=== PATIENT | female | born 1990 | race African-American/Black ===

== ENCOUNTER 2017-01-06 18:27 | Inpatient (IN) | payer OTHER, MEDICAID ==
[~2017-01-06] VITALS: Ht 152.4 cm; Wt 122.4 kg
[~2017-01-06 18:27] MED LIST: ACULAR0.5 % OP; AMOXICILLIN500 MG PO; CEPHALEXIN500 MG OR; FLEXERIL OR; LORTAB5 PO; METFORMIN1000 MG PO; NAPROSYN500 MG PO; NO HOME MEDS; NOVOLIN 70/30 SC; PRENATA8 PO; ROBITUSSIN200 MG/10 PO; TAM75CAP PO; UNKNOWN BP MED; ZITHROMAX250 MG OR; ZOFRAN ODT4 MG OR
[2017-01-06 19:21] VITALS: BP 151/82
[2017-01-06] MEDS ORDERED: PNV PO (19:36)
[2017-01-06] MEDS ORDERED: NOVOLIN 70/30 SC ×2 (19:41→19:42)
[2017-01-06 19:54] LABS: HEMATOCRIT 33.7 % (37.0-47.0); HEMOGLOBIN 11.5 g/dl (12.0-16.0); IMMATURE GRANULOCYTES 0.4 % (0.0-1.0); MEAN CORPUSCULAR HGB 29.3 pG CALC (26.0-32.0); MEAN CORPUSCULAR HGB CONC 34.1 g/L CALC (32.0-36.0); NEUT# 7.76 thou/uL (2.00-7.15); RED BLOOD COUNT 3.92 mill/uL (4.20-5.60); RED CELL DISTRI WIDTH 13.5 % (11.5-15.5)
[2017-01-06 19:57] LABS: URINE BLOOD DIPSTICK NEGATIVE (NEGATIVE); URINE CLARITY CLEAR; URINE COLOR YELLOW; URINE GLUCOSE - DIPSTICK NEGATIVE (NEGATIVE); URINE KETONE TRACE mg/dL (NEGATIVE); URINE LEUK ESTERASE NEGATIVE (Negative); URINE NITRITE - DIPSTICK NEGATIVE (Negative); URINE PROTEIN - DIPSTICK 100 mg/dL (NEG-TRACE); URINE SPECIFIC GRAVITY >=1.030
[2017-01-06 19:58] LABS: URINE BILIRUBIN - DIPSTICK NEGATIVE (NEGATIVE)
[2017-01-06 19:59] LABS: BARBITURATES NEGATIVE (NEGATIVE); COCAINE NEGATIVE (NEGATIVE); METHADONE NEGATIVE (NEGATIVE); OXCYCODONE NEGATIVE (NEGATIVE); TETRAHYDROCANNABIONOL NEGATIVE (NEGATIVE); TRICYLIC ANTIDEPRESSANTS NEGATIVE (NEGATIVE); URINE RBC 0-2 RBC/hpf (0-5); URINE SQUAMOUS EPITHELIAL CELL FEW EPI/hpf (0-FEW); URINE WBC 0-2 WBC/hpf (0-5)
[2017-01-06 20:04] LABS: ALBUMIN 3.3 g/dL (3.2-5.0); ALKALINE PHOSPHATASE 92 u/l (38-126); ANION GAP 15 (6-22 (CALC)); BILIRUBIN, TOTAL 0.4 mg/dL (0.0-1.4); BUN 10 mg/dL (7-17); BUN/CREATININE RATIO 23 (12-20 (CALC)); CALCIUM 9.6 mg/dL (8.4-10.2); CARBON DIOXIDE 19 mmol/l (22-30); CHLORIDE 106 mmol/l (95-108); CREATININE 0.4 mg/dL (0.5-1.0); GFR > 60 ML/MIN (>=60 (CALC)); GFR FOR AFR.AMER. > 60 ML/MIN (>=60 (CALC)); GLUCOSE 140 mg/dL (65-105); POTASSIUM 3.8 mmol/l (3.5-5.1); SGOT/AST 13 u/l (14-36); SGPT/ALT 23 u/l (9-52); SODIUM 137 mmol/l (137-146); TOTAL PROTEIN 6.5 g/dL (6.3-8.2)
[2017-01-06 20:30] VITALS: BP 145/86
[2017-01-07] VITALS (8 sets, daily range): BP systolic 113–155; BP diastolic 60–94
[2017-01-07] MEDS ORDERED: NOVOLIN 70/30 SC (17:53)
== END 2017-01-07 19:44 | disposition home or self-care (01) | DRG 781 ==
LOC: OB 18:27
PROVIDERS: ADMIT Obstetrics & Gynecology; ATTEND Obstetrics & Gynecology
DX: O14.03 Mild to moderate pre-eclampsia, third trimester (principal); O24.113 Pre-existing type 2 diabetes mellitus, in pregnancy, third trimester; Z68.43 Body mass index [BMI] 50.0-59.9, adult; E11.9 Type 2 diabetes mellitus without complications; O99.213 Obesity complicating pregnancy, third trimester; E66.01 Morbid (severe) obesity due to excess calories; Z79.4 Long term (current) use of insulin; Z3A.30 30 weeks gestation of pregnancy

== ENCOUNTER 2017-01-21 09:14 | Observation (INO) | payer OTHER, MEDICAID ==
[~2017-01-21] VITALS: Ht 152.4 cm; Wt 127.5 kg
[~2017-01-21 09:14] MED LIST changes: +ASPIRIN81 MG PO; +PNV PO
[2017-01-21 09:20] VITALS: BP 155/105
--- NOTE | 2017-01-21 09:20 | NUR ---
Patient on unit here for NST. Patient weighed and height obtained. BP of 155/105, Accucheck of 146mg/dl noted also. Patient placed on external monitor. heart rate baseline of 145 noted. Will continue to monitor.
--- NOTE | 2017-01-21 09:42 | NUR ---
Dr. Garnica notified of patient's presence on unit and notified of BP of 155/105 and Accucheck of post prandial of 146 mg/dl.
--- NOTE | 2017-01-21 09:55 | NUR ---
BP of 164/104 noted at present time. Will recheck at present time.
--- NOTE | 2017-01-21 10:02 | NUR ---
BP of 169/109
[2017-01-21 10:08] LABS: URINE BILIRUBIN - DIPSTICK NEGATIVE (NEGATIVE); URINE BLOOD DIPSTICK TRACE-INTACT (NEGATIVE); URINE COLOR YELLOW; URINE GLUCOSE - DIPSTICK NEGATIVE (NEGATIVE); URINE KETONE NEGATIVE (NEGATIVE); URINE LEUK ESTERASE NEGATIVE (NEGATIVE); URINE NITRITE - DIPSTICK NEGATIVE (Negative); URINE SPECIFIC GRAVITY >=1.030; URINE UROBILINOGEN - DIPSTICK 0.2 E.U./dL (0.2)
[2017-01-21 10:09] LABS: COCAINE NEGATIVE (NEGATIVE); URINE CLARITY SLIGHT CLOUDY; URINE PROTEIN - DIPSTICK Trace mg/dL (NEG-TRACE)
[2017-01-21 10:10] LABS: BARBITURATES NEGATIVE (NEGATIVE); METHADONE NEGATIVE (NEGATIVE); OXCYCODONE NEGATIVE (NEGATIVE); TETRAHYDROCANNABIONOL NEGATIVE (NEGATIVE); TRICYLIC ANTIDEPRESSANTS NEGATIVE (NEGATIVE)
--- NOTE | 2017-01-21 10:10 | NUR ---
NST check done and verified with Raquel MARTINEZ. strip nonreactive at this point. Patient still on external monitor, heart rate of 145, minimal variability at present time. Awaiting results of urinalysis.
--- NOTE | 2017-01-21 10:20 | NUR ---
Dr. Garnica called and notified unable to leave message as voicemail full.
--- NOTE | 2017-01-21 10:34 | NUR ---
Patient placed on left side. BP of 156/94.
--- NOTE | 2017-01-21 10:40 | NUR ---
Call to Dr. Garnica at office but office staff states that he is in OR.
--- NOTE | 2017-01-21 10:44 | NUR ---
BP of 178/99.
--- NOTE | 2017-01-21 11:03 | NUR ---
Dr. Garnica called and notified of patient's blood pressures. Order for cmp,cbc and 24 hour urine for total protein and creatinane kinase.
--- NOTE | 2017-01-21 11:57 | NUR ---
BP of 140/93. Patient sitting semifowlers.
[2017-01-21 12:14] LABS: HEMATOCRIT 33.9 % (37.0-47.0); HEMOGLOBIN 11.4 g/dl (12.0-16.0); IMMATURE GRANULOCYTES 0.6 % (0.0-1.0); MEAN CELL VOLUME 86.5 fL CALC (80.0-100.0); MEAN CORPUSCULAR HGB 29.1 pG CALC (26.0-32.0); MEAN CORPUSCULAR HGB CONC 33.6 g/L CALC (32.0-36.0); NEUT# 7.1 thou/uL (2.00-7.15); RED BLOOD COUNT 3.92 mill/uL (4.20-5.60); RED CELL DISTRI WIDTH 13.5 % (11.5-15.5)
[2017-01-21 12:26] LABS: ALKALINE PHOSPHATASE 98 u/l (38-126); ANION GAP 13 (6-22 (CALC)); BILIRUBIN, TOTAL 0.5 mg/dL (0.0-1.4); BUN 6 mg/dL (7-17); BUN/CREATININE RATIO 14 (12-20 (CALC)); CALCIUM 9.3 mg/dL (8.4-10.2); CARBON DIOXIDE 21 mmol/l (22-30); CHLORIDE 106 mmol/l (95-108); CREATININE 0.4 mg/dL (0.5-1.0); GFR > 60 ML/MIN (>=60 (CALC)); GFR FOR AFR.AMER. > 60 ML/MIN (>=60 (CALC)); GLUCOSE 106 mg/dL (65-105); POTASSIUM 4.1 mmol/l (3.5-5.1); SGOT/AST 17 u/l (14-36); SGPT/ALT 22 u/l (9-52); SODIUM 137 mmol/l (137-146); TOTAL PROTEIN 6.1 g/dL (6.3-8.2)
--- NOTE | 2017-01-21 12:59 | NUR ---
Patient eating lunch at present time.
--- NOTE | 2017-01-21 13:15 | NUR ---
Dr. Garnica notified of patient's presence on unit and stated that patient's blood pressure is lower order for patient to be seen in office in morning.
--- NOTE | 2017-01-21 13:15 | NUR ---
strip reactive now.
--- NOTE | 2017-01-21 13:32 | NUR ---
Patient leaves unit in good condition with all belongings. Patient informed to return next week on jan 28, 2017 at 1000 for weekly NST.
== END 2017-01-21 13:32 | disposition home or self-care (01) | DRG 781 ==
LOC: OBOP 09:14 → OB 09:40
PROVIDERS: ADMIT Obstetrics & Gynecology; ATTEND Obstetrics & Gynecology
DX: O13.3 Gestational [pregnancy-induced] hypertension without significant proteinuria, third trimester (principal); O24.913 Unspecified diabetes mellitus in pregnancy, third trimester; Z3A.32 32 weeks gestation of pregnancy; Z79.4 Long term (current) use of insulin
CPT/HCPCS: G0378

== ENCOUNTER 2017-01-22 00:41 | Inpatient (IN) | payer OTHER, MEDICAID ==
[2017-01-22] VITALS (13 sets, daily range): BP systolic 148–185; BP diastolic 81–115
[~2017-01-22] VITALS: Ht 30.5 cm; Wt 126.6 kg
--- NOTE | 2017-01-22 00:55 | NUR ---
Pt arrived @ 0055 via wheelchair, c/o bright red vaginal bleeding at 0030 when she got up to use the bathroom. Visible blood on pad in wheelchair. Pt weighed and taken to room 256, urine for DOA 100ml and bloody, visible bright red blood on patient's inner thighs. Abdomen palpating soft, and baby moving well. EFM applied with explanation at 0103, difficulty finding FHR due to increased body habitus. Initial BP at 0110 163/115, 165/110, 185/109, 179/113. RN call to Dr. Skelton at 0128 re: IUP 32.3 wks hx section x 2, Type II diabetic on insulin last dose 01/20 @ HS, 5'0" 279 lbs also takes Aspirin 80mg last dose 01/20/17, bright red vaginal bleeding at [id number]; ordered IV and will be in to see her. 0145 IV started in Right AC 18g x 1 stick by Fritz Leon RNC Dr. Skelton at bedside at 0148. Labatelol 20mg IV at 0148. 0208 Almaraz inserted by Martin Lee RN. 0212 Magnesium Sulfate 4mg loading dose. 0213 Decadron 6mg IV and Penicillin 5 million units IBPB, Dr. Skelton call to [facility] - pt accepted for transfer. 0218 Clinical Rehabilitation Specialist call to [facility] for transfer, [facility] stated they will be able to fly. 0224 Procardia 20mg PO. 0233 Labatelol 40mg IV, Team here for patient transfer. 0300 GERMAIN Burt report called to Honey Kirby RN at [facility] including history, all meds, vital signs, FHR and contractions q 2-4 min palpating mild, pain 2/10 backache. [facility]
--- NOTE | 2017-01-22 01:15 | NUR ---
COMES TO UNIT WITH COMPLAINTS OF VAGINAL BLEEDING. EDC 03/16/17 WITH GESTATIONAL AGE OF 32.3 WEEKS. DENIES SEXUAL INTERCOURSE THIS EVENING. WAS HERE FOR NST YESTERDAY. BRIGHT RED BLOOD NOTED ON UNDERWEAR AND CHUX. BLOOD NOTED IN URINE SAMPLE. REPORTS DID NOT TAKE HER INSULIN THIS EVENING. PT TAKES 40 UNITS OF 70/30 EVERY PM. NO SVE WILL BE PERFORMED. FAMILY AT BEDSIDE.
[2017-01-22 01:29] LABS: URINE BILIRUBIN - DIPSTICK NEGATIVE (NEGATIVE); URINE BLOOD DIPSTICK LARGE (NEGATIVE); URINE CLARITY CLEAR; URINE COLOR RED; URINE GLUCOSE - DIPSTICK >=1000 mg/dL (NEGATIVE); URINE KETONE 15 mg/dL (NEGATIVE); URINE LEUK ESTERASE TRACE (Negative); URINE NITRITE - DIPSTICK POSITIVE (Negative); URINE PROTEIN - DIPSTICK >=300 mg/dL (NEG-TRACE); URINE SPECIFIC GRAVITY 1.015
[2017-01-22 01:34] LABS: BARBITURATES NEGATIVE (NEGATIVE); COCAINE NEGATIVE (NEGATIVE); METHADONE NEGATIVE (NEGATIVE); OXCYCODONE NEGATIVE (NEGATIVE); TETRAHYDROCANNABIONOL NEGATIVE (NEGATIVE); TRICYLIC ANTIDEPRESSANTS NEGATIVE (NEGATIVE)
[2017-01-22 01:42] LABS: URINE RBC TNTC RBC/hpf (0-5)
[2017-01-22 02:05] LABS: HEMATOCRIT 35.5 % (37.0-47.0); HEMOGLOBIN 12.1 g/dl (12.0-16.0); IMMATURE GRANULOCYTES 0.5 % (0.0-1.0); MEAN CELL VOLUME 85.7 fL CALC (80.0-100.0); MEAN CORPUSCULAR HGB 29.2 pG CALC (26.0-32.0); MEAN CORPUSCULAR HGB CONC 34.1 g/L CALC (32.0-36.0); NEUT# 8.42 thou/uL (2.00-7.15); RED BLOOD COUNT 4.14 mill/uL (4.20-5.60); RED CELL DISTRI WIDTH 13.3 % (11.5-15.5)
[2017-01-22 02:20] LABS: ALBUMIN 3.3 g/dL (3.2-5.0); ALKALINE PHOSPHATASE 111 u/l (38-126); ANION GAP 14 (6-22 (CALC)); BILIRUBIN, TOTAL 0.5 mg/dL (0.0-1.4); BUN 8 mg/dL (7-17); BUN/CREATININE RATIO 14 (12-20 (CALC)); CALCIUM 9.7 mg/dL (8.4-10.2); CARBON DIOXIDE 21 mmol/l (22-30); CHLORIDE 107 mmol/l (95-108); CREATININE 0.6 mg/dL (0.5-1.0); GFR > 60 ML/MIN (>=60 (CALC)); GFR FOR AFR.AMER. > 60 ML/MIN (>=60 (CALC)); GLUCOSE 203 mg/dL (65-105); POTASSIUM 4.2 mmol/l (3.5-5.1); SGOT/AST 17 u/l (14-36); SGPT/ALT 22 u/l (9-52); SODIUM 138 mmol/l (137-146); TOTAL PROTEIN 6.4 g/dL (6.3-8.2)
== END 2017-01-22 03:10 | disposition short-term general hospital (02) | DRG 781 ==
LOC: OBOP 00:41 → EDSTATUS 00:44 → OB 00:55 → OBOP 00:55 → OB 02:00
PROC: 0T9B70Z Drainage of Bladder with Drainage Device, Via Natural or Artificial Opening (ICD-10-PCS; principal; 2017-01-22)
DX: O14.93 Unspecified pre-eclampsia, third trimester (principal); O24.913 Unspecified diabetes mellitus in pregnancy, third trimester; O34.219 Maternal care for unspecified type scar from previous cesarean delivery; N85.8 Other specified noninflammatory disorders of uterus; O99.213 Obesity complicating pregnancy, third trimester; E66.01 Morbid (severe) obesity due to excess calories; O46.93 Antepartum hemorrhage, unspecified, third trimester; Z3A.32 32 weeks gestation of pregnancy; Z79.4 Long term (current) use of insulin
CPT/HCPCS: J2540

== ENCOUNTER 2019-09-24 19:54 | Emergency (ER) | payer OTHER, MEDICAID ==
[~2019-09-24] VITALS: Ht 30.5 cm; Wt 113.6 kg
[2019-09-24 21:02] LABS: HEMATOCRIT 39.7 % (37.0-47.0); HEMOGLOBIN 13.4 g/dl (12.0-16.0); IMMATURE GRANULOCYTES 0.3 % (0.0-5.0); MEAN CELL VOLUME 82.5 fL CALC (80.0-100.0); MEAN CORPUSCULAR HGB 27.9 pG CALC (26.0-32.0); MEAN CORPUSCULAR HGB CONC 33.8 g/dL CAL (32.0-36.0); NEUT# 4.33 thou/uL (2.00-7.15); RED BLOOD COUNT 4.81 mill/uL (4.20-5.60); RED CELL DISTRI WIDTH 12.1 % (11.5-15.5)
[2019-09-24 21:15] LABS: ALKALINE PHOSPHATASE 93 u/l (38-126); ANION GAP 17 (6-22 (CALC)); BILIRUBIN, TOTAL 0.4 mg/dL (0.0-1.4); BUN 6 mg/dL (7-17); BUN/CREATININE RATIO 9 (12-20 (CALC)); CARBON DIOXIDE 20 mmol/l (22-30); CHLORIDE 100 mmol/l (95-108); CREATININE 0.6 mg/dL (0.5-1.0); GFR > 60 ML/MIN (>=60 (CALC)); GFR FOR AFR.AMER. > 60 ML/MIN (>=60 (CALC)); POTASSIUM 3.7 mmol/l (3.5-5.1); SGOT/AST 20 u/l (14-36); SODIUM 134 mmol/l (137-146)
[2019-09-24 21:21] LABS: ALBUMIN 4.5 g/dL (3.2-5.0); TOTAL PROTEIN 8.8 g/dL (6.3-8.2)
[2019-09-24] MEDS ORDERED: NOVOLIN 70/30 SC (22:02)
[2019-09-24] MEDS ORDERED: PROAIR DIG108 MCG/AC (22:03)
[2019-09-24] MEDS ORDERED: AZITHROMYCIN1 GM PO (22:03)
[2019-09-24 22:55] VITALS: BP 128/81
== END 2019-09-24 23:00 | disposition home or self-care (01) | DRG 179 ==
LOC: ED 19:54
PROVIDERS: Emergency Medicine
DX: U07.1 COVID-19 (principal); E11.9 Type 2 diabetes mellitus without complications; Z79.4 Long term (current) use of insulin

== ENCOUNTER 2022-02-04 20:28 | Emergency (ER) | payer MEDICAID ==
[2022-02-04] VITALS (7 sets, daily range): BP systolic 139–156; BP diastolic 86–103
[~2022-02-04] VITALS: Ht 152.4 cm; Wt 97.0 kg
[~2022-02-04 20:28] MED LIST changes: +AZITHROMYCIN1 GM PO; +PROAIR DIG108 MCG/AC
[2022-02-05 00:15] VITALS: BP 158/95
== END 2022-02-05 00:30 | disposition home or self-care (01) ==
LOC: ED 20:28
DX: B34.9 Viral infection, unspecified (principal); E11.9 Type 2 diabetes mellitus without complications; Z79.4 Long term (current) use of insulin; Z20.822 Contact with and (suspected) exposure to COVID-19

== ENCOUNTER 2022-02-08 22:22 | Emergency (ER) | payer MEDICAID ==
[~2022-02-08] VITALS: Ht 152.4 cm; Wt 96.0 kg
[2022-02-08 22:38] VITALS: BP 142/101
[2022-02-08] MEDS ORDERED: GABAPENTIN100 MG PO (23:02)
[2022-02-08] MEDS ORDERED: CYCLOBENZAPRINE10 MG PO (23:03)
[2022-02-08] MEDS ORDERED: DICLOFENAC SODI75 MG PO (23:03)
[2022-02-08] MEDS ORDERED: AMOX/K CLAV875 M1 PO (23:04)
[2022-02-08 23:07] VITALS: BP 146/96
[2022-02-08 23:13] LABS: HEMATOCRIT 34.8 % (37.0-47.0); IMMATURE GRANULOCYTES 0.1 % (0.0-5.0); MEAN CORPUSCULAR HGB 30.2 pG CALC (26.0-32.0); MEAN CORPUSCULAR HGB CONC 34.5 g/dL CAL (32.0-36.0); NEUT# 3.48 thou/uL (2.00-7.15); RED BLOOD COUNT 3.97 mill/uL (4.20-5.60); RED CELL DISTRI WIDTH 11.8 % (11.5-15.5)
[2022-02-08 23:14] LABS: URINE BILIRUBIN - DIPSTICK NEGATIVE (NEGATIVE); URINE BLOOD DIPSTICK NEGATIVE (NEGATIVE); URINE COLOR YELLOW; URINE GLUCOSE - DIPSTICK NEGATIVE (NEGATIVE); URINE KETONE NEGATIVE (NEGATIVE); URINE LEUK ESTERASE NEGATIVE (NEGATIVE); URINE PROTEIN - DIPSTICK NEGATIVE (NEG-TRACE); URINE SPECIFIC GRAVITY 1.025
[2022-02-08 23:14] LABS: MEAN CELL VOLUME 87.7 fL CALC (80.0-100.0)
[2022-02-08 23:16] VITALS: BP 163/106
[2022-02-08 23:16] LABS: URINE NITRITE - DIPSTICK NEGATIVE (Negative)
[2022-02-08 23:30] LABS: ALBUMIN 4.4 g/dL (3.2-5.0); ALKALINE PHOSPHATASE 59 u/l (38-126); BILIRUBIN, TOTAL 0.5 mg/dL (0.0-1.4); BUN 7 mg/dL (7-17); BUN/CREATININE RATIO 14 (12-20 (CALC)); CHLORIDE 106 mmol/l (95-108); CREATININE 0.5 mg/dL (0.5-1.0); GFR FOR AFR.AMER. > 60 ML/MIN (>=60 (CALC)); GFR OTHER RACES > 60 ML/MIN (>=60 (CALC)); POTASSIUM 3.7 mmol/l (3.5-5.1); SGOT/AST 28 u/l (14-36); SODIUM 140 mmol/l (137-146); TOTAL PROTEIN 7.9 g/dL (6.3-8.2)
[2022-02-08 23:36] LABS: ANION GAP 12 (6-22 (CALC)); CARBON DIOXIDE 26 mmol/l (22-30)
[2022-02-09] MEDS ORDERED: CYCLOBENZAPRINE10 MG PO (00:15)
[2022-02-09] MEDS ORDERED: NAPROXEN500 MG PO (00:15)
[2022-02-09 00:20] VITALS: BP 163/89
== END 2022-02-09 00:31 | disposition home or self-care (01) ==
LOC: ED 22:22
PROVIDERS: Emergency Medicine
DX: M54.50 Low back pain, unspecified (principal); I10 Essential (primary) hypertension; E11.9 Type 2 diabetes mellitus without complications; E66.9 Obesity, unspecified; Z79.84 Long term (current) use of oral hypoglycemic drugs

== ENCOUNTER 2022-06-30 19:25 | Emergency (ER) | payer OTHER, MEDICAID ==
[~2022-06-30] VITALS: Ht 152.4 cm; Wt 98.8 kg
[~2022-06-30 19:25] MED LIST changes: +AMOX/K CLAV875 M1 PO; +CYCLOBENZAPRINE10 MG PO; +DICLOFENAC SODI75 MG PO; +GABAPENTIN100 MG PO; +NAPROXEN500 MG PO
[2022-06-30 20:30] LABS: URINE BILIRUBIN - DIPSTICK NEGATIVE (NEGATIVE); URINE BLOOD DIPSTICK NEGATIVE (NEGATIVE); URINE COLOR YELLOW; URINE GLUCOSE - DIPSTICK 250 mg/dL (NEGATIVE); URINE KETONE NEGATIVE (NEGATIVE); URINE LEUK ESTERASE NEGATIVE (NEGATIVE); URINE PROTEIN - DIPSTICK NEGATIVE (NEG-TRACE); URINE SPECIFIC GRAVITY 1.015; URINE UROBILINOGEN - DIPSTICK 0.2 E.U./dL (0.2)
[2022-06-30 20:31] LABS: URINE NITRITE - DIPSTICK NEGATIVE (Negative)
[2022-06-30] MEDS ORDERED: TAM75CAP PO (21:37)
[2022-06-30] MEDS ORDERED: PAXLOVID PO (21:37)
[2022-06-30 21:43] VITALS: BP 128/69
== END 2022-06-30 21:50 | disposition home or self-care (01) | DRG 179 ==
LOC: ED 19:25
PROVIDERS: Emergency Medicine
DX: U07.1 COVID-19 (principal); B34.9 Viral infection, unspecified; E11.9 Type 2 diabetes mellitus without complications; Z79.84 Long term (current) use of oral hypoglycemic drugs

== ENCOUNTER 2023-11-10 16:46 | Emergency (ER) | payer OTHER ==
[~2023-11-10] VITALS: Ht 152.4 cm; Wt 100.0 kg
[~2023-11-10 16:46] MED LIST changes: +PAXLOVID PO
[2023-11-10 16:54] VITALS: BP 124/89
[2023-11-10 17:00] VITALS: BP 131/85
[2023-11-10 17:15] VITALS: BP 132/99
[2023-11-10 17:30] VITALS: BP 138/92
[2023-11-10] MEDS ORDERED: DEXAMETHASONE SOD. PHOSPHATE 10 MG/ML VIAL IM ONE (17:30)
[2023-11-10] MEDS ORDERED: KETOROLAC TROMETHAMINE 30 MG/ML SDV IM ONE (17:30)
[2023-11-10 17:45] VITALS: BP 120/82
[2023-11-10] MEDS ORDERED: MOTRIN800 MG PO (18:03)
[2023-11-10 18:11] VITALS: BP 120/82
== END 2023-11-10 18:36 | disposition home or self-care (01) | DRG 605 ==
LOC: ED 16:46
DX: S50.812A Abrasion of left forearm, initial encounter (principal); E11.9 Type 2 diabetes mellitus without complications; E66.9 Obesity, unspecified; Z79.4 Long term (current) use of insulin; V43.54XA Car driver injured in collision with van in traffic accident, initial encounter